=== PATIENT | female | born 1930 | race Caucasian/White ===

== ENCOUNTER 2017-01-06 11:28 | Inpatient (IN) | payer OTHER ==
[~2017-01-06] VITALS: Ht 154.9 cm; Wt 47.8 kg
[2017-01-06] VITALS (9 sets, daily range): BP systolic 98–149; BP diastolic 53–78
[~2017-01-06 11:28] MED LIST: ANUCORT-HC25 MG RC; ASPIRIN EC325 MG PO; ASPIRIN325 MG PO; AUGMENTIN500 MG PO; CEFTIN500 MG PO; CIPRO500 MG PO; CLARITIN-D 121 EACH PO; CRANBERRY TABL1 EACH PO; DEXILANT PO; DEXILANT60 MG PO; DIOVAN320 MG PO; ECOTRIN325 MG PO; K-DUR10 ME1 PO; KLOR-CON M1010 MEQ PO; LASIX10 MG PO; LASIX20 MG PO; LIPITOR10 MG PO; LIPITOR20 MG PO; MACROBID100 MG PO; MANDELAMINE500 MG PO; METOPROLOL SUCC25 MG PO; PEPCID40 MG PO; PLAVIX75 MG PO; PREDNISONE20 MG PO; PROTONIX40 MG PO; PYRIDIUM100 MG PO; SULFAMETHOXAZO1 EACH PO; TOPROL XL25 MG PO; TOPROL XL50 MG PO; VITAMIN D1000 INTUN PO; VITAMIN D31000 UNI2 PO; VITAMIN E400 UNIT PO; ZOFRAN4 MG PO; Zocor PO
[2017-01-06 12:44] LABS: HEMATOCRIT 29.7 % (36.0-46.0); MCV 83.9 FL (83-99); MEAN PLAT.VOLUME 11.9 uM^3 (9.5-12.4); PLATELET COUNT 138 K/uL (156-360); RBC DIS.WIDTH-CV 16.2 % (11.8-14.6); RBC DIS.WIDTH-SD 48.4 % (39-53); RED BLOOD COUNT 3.54 M/uL (3.80-5.20); WHITE BLOOD COUNT 5.5 K/uL (4.1-10.2)
[2017-01-06 12:52] LABS: INTER. NORMALIZED RATIO 1.1; PROTHROMBIN TIME 11.5 (9.2-11.2)
[2017-01-06 12:58] LABS: CHLORIDE 110 mEq/L (99-109); POTASSIUM 3.9 mEq/L (3.7-5.4); SODIUM 140 mEq/L (136-147)
[2017-01-06 12:59] LABS: MAGNESIUM 1.3 mg/dL (1.3-2.7)
[2017-01-06 13:01] LABS: GLUCOSE 118 mg/dL (70-99)
[2017-01-06 13:02] LABS: ANION GAP 6 MEQ/L (2-14)
[2017-01-06 13:03] LABS: TOTAL BILIRUBIN 0.3 mg/dL (0.0-1.0); TROP-I INTERPRETATION NEGATIVE; TROPONIN-I 0.16 ng/mL (0.0-0.30)
[2017-01-06 13:04] LABS: ALKALINE PHOSPHATASE 89 IU/L (3-129)
[2017-01-06 13:05] LABS: GFR ESTIMATE (CALCULATED) 56 mL/min/
[2017-01-06 13:06] LABS: UREA NITROGEN (BUN) 26 mg/dL (9-23)
[2017-01-06 19:54] LABS: HEMATOCRIT 29.6 % (36.0-46.0); MCV 84.1 FL (83-99)
[2017-01-06 20:19] LABS: TROP-I INTERPRETATION POSITIVE
[2017-01-06 20:46] LABS: TROPONIN-I 1.83 ng/mL (0.0-0.30)
[2017-01-07 04:40] LABS: HEMATOCRIT 30.9 % (36.0-46.0); MCV 83.7 FL (83-99)
[2017-01-07 04:48] VITALS: BP 126/61
[2017-01-07 04:56] LABS: CHLORIDE 106 mEq/L (99-109); POTASSIUM 3.3 mEq/L (3.7-5.4); SODIUM 139 mEq/L (136-147)
[2017-01-07 04:57] LABS: GLUCOSE 136 mg/dL (70-99)
[2017-01-07 04:59] LABS: ANION GAP 9 MEQ/L (2-14)
[2017-01-07 05:01] LABS: GFR ESTIMATE (CALCULATED) > 59 mL/min/
[2017-01-07 05:02] LABS: UREA NITROGEN (BUN) 16 mg/dL (9-23)
[2017-01-07 05:06] LABS: TROP-I INTERPRETATION POSITIVE
[2017-01-07 05:07] LABS: TROPONIN-I 1.44 ng/mL (0.0-0.30)
[2017-01-07 07:41] VITALS: BP 147/61
[2017-01-07 10:49] LABS: ANION GAP 9 MEQ/L (2-14); CHLORIDE 104 MEQ/L (99-109); GFR ESTIMATE (CALCULATED) > 59 mL/min/; GLUCOSE 200 mg/dL (70-99); POTASSIUM 3.7 MEQ/L (3.7-5.4); SAMPLE HEMOLYSIS CHECK 0; SAMPLE ICTERIC CHECK 0; SAMPLE LIPEMIA CHECK 0; SODIUM 138 MEQ/L (136-147); UREA NITROGEN (BUN) 14 mg/dL (9-23)
[2017-01-07 11:30] VITALS: BP 132/60
[2017-01-07 14:54] LABS: HEMATOCRIT 31.3 % (36.0-46.0); MCV 84.6 FL (83-99)
[2017-01-07 15:00] VITALS: BP 140/62
[2017-01-07 19:20] VITALS: BP 184/74
[2017-01-07 20:02] LABS: HEMATOCRIT 31.8 % (36.0-46.0); MCV 83.7 FL (83-99)
[2017-01-08] VITALS (10 sets, daily range): BP systolic 136–231; BP diastolic 67–105
[2017-01-08 05:08] LABS: HEMATOCRIT 31.1 % (36.0-46.0); MCV 82.9 FL (83-99)
[2017-01-08 10:36] LABS: ADD MIUA? YES; BILIRUBIN NEGATIVE; BLOOD SMALL; COLOR STRAW ((YELLOW)); GLUCOSE (STRIP) NEGATIVE; KETONES NEGATIVE; LEUKOCYTES TRACE; NITRITE NEGATIVE; PROTEIN (STRIP) NEGATIVE; SPECIFIC GRAVITY 1.005 (1.000-1.030); UROBILINOGEN 0.2 MG/DL (0.2-1.0)
[2017-01-08 10:58] LABS: BACTERIA NONE SEEN /HPF; EPITHELIAL CELLS RARE /HPF; MUCUS TRACE /LPF; RED BLOOD CELLS 30-40 /HPF (0-5); UCUL ADDED? NO; WHITE BLOOD CELLS 0-5 /HPF (0-5)
[2017-01-08 13:50] LABS: HEMATOCRIT 32.5 % (36.0-46.0); MCV 83.3 FL (83-99)
[2017-01-08 16:45] LABS: POINT-OF-CARE METER ID UU13113781
[2017-01-08 16:56] LABS: EOSINOPHIL (%) 0.8 % (0-5); EOSINOPHIL COUNT 0.1 K/uL (0-0.3); HEMATOCRIT 32.7 % (36.0-46.0); IMMATURE GRANULOCYTE (%) 0.3 % (0.0-0.7); LYMPHOCYTE COUNT 0.5 K/uL (1.0-2.8); MCH 26.3 PG (29.0-34.0); MCHC 32.1 G/DL (30.0-36.0); MEAN PLAT.VOLUME 11.5 uM^3 (9.5-12.4); MONOCYTE (%) 7.5 % (3-12); MONOCYTE COUNT 0.5 K/uL (0-0.8); NEUTROPHIL (%) 82.5 % (45-76); NEUTROPHIL COUNT 4.9 K/uL (1.8-6.4); PLATELET COUNT 179 K/uL (156-360); RBC DIS.WIDTH-SD 47.9 % (39-53); RED BLOOD COUNT 3.99 M/uL (3.80-5.20)
[2017-01-08 17:15] LABS: ANION GAP 9 MEQ/L (2-14); CHLORIDE 101 MEQ/L (99-109); POTASSIUM 3.8 MEQ/L (3.7-5.4); SAMPLE HEMOLYSIS CHECK 0; SAMPLE ICTERIC CHECK 0; SAMPLE LIPEMIA CHECK 0; SODIUM 137 MEQ/L (136-147)
[2017-01-08 17:22] LABS: GFR ESTIMATE (CALCULATED) > 59 mL/min/; GLUCOSE 117 mg/dL (70-99); UREA NITROGEN (BUN) 10 mg/dL (9-23)
[2017-01-08 19:43] LABS: HEMATOCRIT 35.1 % (36.0-46.0); MCV 82.8 FL (83-99)
[2017-01-09] VITALS (7 sets, daily range): BP systolic 122–190; BP diastolic 58–80
[2017-01-09 04:23] LABS: HEMATOCRIT 33.2 % (36.0-46.0)
[2017-01-09] MEDS ORDERED: APRESOLINE25 MG PO (10:41)
[2017-01-09] MEDS ORDERED: METOPROLOL SUCC50 MG PO (10:41)
[2017-01-09 12:19] LABS: HEMATOCRIT 33.4 % (36.0-46.0); MCV 80.5 FL (83-99)
[2017-01-09 19:58] LABS: HEMATOCRIT 32.7 % (36.0-46.0)
[2017-01-10 03:24] VITALS: BP 138/72
[2017-01-10 07:02] VITALS: BP 134/61
[2017-01-10 11:01] VITALS: BP 95/53
== END 2017-01-10 18:12 | DRG 281 ==
LOC: EME 11:28 → EDOF 13:47 → 4EAST 13:47
PROVIDERS: Emergency Medicine; Internal Medicine; Student in an Organized Health Care Education/Training Program
DX: I48.0 Paroxysmal atrial fibrillation (principal); I25.810 Atherosclerosis of coronary artery bypass graft(s) without angina pectoris; I21.4 Non-ST elevation (NSTEMI) myocardial infarction; E78.5 Hyperlipidemia, unspecified; I10 Essential (primary) hypertension; I50.9 Heart failure, unspecified; F17.210 Nicotine dependence, cigarettes, uncomplicated; R53.1 Weakness; Z86.73 Personal history of transient ischemic attack (TIA), and cerebral infarction without residual deficits; K64.8 Other hemorrhoids; Z95.2 Presence of prosthetic heart valve; I45.10 Unspecified right bundle-branch block; F41.9 Anxiety disorder, unspecified; G93.89 Other specified disorders of brain; Z96.643 Presence of artificial hip joint, bilateral; J44.9 Chronic obstructive pulmonary disease, unspecified
CPT/HCPCS: 70450; 71010; 80048; 80048 91; 80053; 81003; 82948; 83735; 84484; 85014; 85018; 85025; 85027; 85610; 87086; 87493; 87506; 93005; 93306; 94640 76; 97530 GO; 99281; 99285; C9113; J0360; J1160; J1940; J3475

== ENCOUNTER 2017-06-13 07:51 | Day surgery (SDC) | payer OTHER ==
[~2017-06-13] VITALS: Ht 154.9 cm; Wt 48.1 kg
[~2017-06-13 07:51] MED LIST changes: +APRESOLINE25 MG PO; +METOPROLOL SUCC50 MG PO; +PREVACID 24HR15 MG PO; +PROVENTIL HFA6.7 GM IH
[2017-06-13 08:29] VITALS: BP 124/57
[2017-06-13 12:29] VITALS: BP 151/86
[2017-06-13 13:13] VITALS: BP 136/62
== END 2017-06-13 13:21 | disposition home or self-care (01) ==
LOC: SDC 07:51
DX: N13.5 Crossing vessel and stricture of ureter without hydronephrosis (principal); N81.10 Cystocele, unspecified; Z87.440 Personal history of urinary (tract) infections; I25.10 Atherosclerotic heart disease of native coronary artery without angina pectoris; I10 Essential (primary) hypertension; E78.5 Hyperlipidemia, unspecified; M19.90 Unspecified osteoarthritis, unspecified site; Z87.891 Personal history of nicotine dependence; Z79.01 Long term (current) use of anticoagulants; Z82.49 Family history of ischemic heart disease and other diseases of the circulatory system; Z88.1 Allergy status to other antibiotic agents; Z88.2 Allergy status to sulfonamides
CPT/HCPCS: 74000; 76000; 87086; C1769; C2617; J1170; J1580; J7050

== ENCOUNTER 2017-07-27 14:49 | Observation (INO) | payer OTHER ==
[~2017-07-27] VITALS: Ht 154.9 cm; Wt 50.2 kg
[~2017-07-27 14:49] MED LIST changes: +HIPREX1 GM PO; +LASIX40 MG PO
[2017-07-27 15:35] LABS: MCH 25.1 PG (29.0-34.0); MCV 83.5 FL (83-99); MEAN PLAT.VOLUME 11.3 uM^3 (9.5-12.4); PLATELET COUNT 183 K/uL (156-360); RBC DIS.WIDTH-CV 16.4 % (11.8-14.6); RBC DIS.WIDTH-SD 49.6 % (39-53); RED BLOOD COUNT 4.19 M/uL (3.80-5.20); WHITE BLOOD COUNT 4.2 K/uL (4.1-10.2)
[2017-07-27 15:44] LABS: CHLORIDE 101 mEq/L (99-109); POTASSIUM 3.6 mEq/L (3.7-5.4); SODIUM 138 mEq/L (136-147)
[2017-07-27 15:45] LABS: GLUCOSE 100 mg/dL (70-99)
[2017-07-27 15:47] LABS: ANION GAP 10 MEQ/L (2-14)
[2017-07-27 15:49] LABS: GFR ESTIMATE (CALCULATED) 50 mL/min/
[2017-07-27 15:50] LABS: UREA NITROGEN (BUN) 25 mg/dL (9-23)
[2017-07-27 15:57] LABS: TROP-I INTERPRETATION NEGATIVE; TROPONIN-I < 0.01 ng/mL (0.0-0.30)
[2017-07-27 17:06] LABS: ADD MIUA? NO; BILIRUBIN NEGATIVE; BLOOD NEGATIVE; COLOR STRAW ((YELLOW)); GLUCOSE (STRIP) NEGATIVE; KETONES NEGATIVE; LEUKOCYTES NEGATIVE; NITRITE NEGATIVE; PROTEIN (STRIP) NEGATIVE; SPECIFIC GRAVITY 1.004 (1.000-1.030); UCUL ADDED? NO; UROBILINOGEN 0.2 MG/DL (0.2-1.0)
[2017-07-27 18:07] LABS: TROP-I INTERPRETATION NEGATIVE; TROPONIN-I < 0.01 ng/mL (0.0-0.30)
[2017-07-27 21:15] VITALS: BP 148/69
[2017-07-27 23:41] VITALS: BP 171/77
[2017-07-28 01:55] VITALS: BP 133/63; BP 137/64; BP 151/67
[2017-07-28 03:46] VITALS: BP 139/63
[2017-07-28 05:26] LABS: EOSINOPHIL (%) 3.2 % (0-5); EOSINOPHIL COUNT 0.1 K/uL (0-0.3); HEMATOCRIT 31.5 % (36.0-46.0); IMMATURE GRANULOCYTE (%) 0.3 % (0.0-0.7); INSTRUMENT ABS NEUTROPHIL CT 2.2 K/uL; LYMPHOCYTE COUNT 0.6 K/uL (1.0-2.8); MCH 26.2 PG (29.0-34.0); MCHC 30.8 G/DL (30.0-36.0); MCV 85.1 FL (83-99); MEAN PLAT.VOLUME 11.3 uM^3 (9.5-12.4); MONOCYTE (%) 13.7 % (3-12); MONOCYTE COUNT 0.5 K/uL (0-0.8); NEUTROPHIL COUNT 2.2 K/uL (1.8-6.4); PLATELET COUNT 166 K/uL (156-360); RBC DIS.WIDTH-CV 16.3 % (11.8-14.6); RBC DIS.WIDTH-SD 50.4 % (39-53); WHITE BLOOD COUNT 3.4 K/uL (4.1-10.2)
[2017-07-28 05:53] LABS: ALKALINE PHOSPHATASE 87 IU/L (3-129); ANION GAP 8 MEQ/L (2-14); CHLORIDE 105 MEQ/L (99-109); DIRECT BILIRUBIN 0.1 mg/dL (0.0-0.3); GFR ESTIMATE (CALCULATED) 50 mL/min/; GLUCOSE 92 mg/dL (70-99); POTASSIUM 3.9 MEQ/L (3.7-5.4); SAMPLE HEMOLYSIS CHECK 0; SAMPLE ICTERIC CHECK 0; SAMPLE LIPEMIA CHECK 0; SODIUM 141 MEQ/L (136-147); TOTAL BILIRUBIN 0.4 MG/DL (0.0-1.0); UREA NITROGEN (BUN) 21 mg/dL (9-23)
[2017-07-28 09:05] VITALS: BP 189/88
[2017-07-28 12:20] VITALS: BP 124/64
[2017-07-28] MEDS ORDERED: METOPROLOL SUCC50 MG PO (12:23)
[2017-07-28] MEDS ORDERED: SPIRONOLACTONE25 MG PO (12:23)
== END 2017-07-28 16:28 | disposition home or self-care (01) ==
LOC: EME 14:49 → EDOF 19:46 → ENRESERV 19:47 → 5WEST 20:59
PROVIDERS: Hospitalist; Physician Assistant Medical
DX: I16.0 Hypertensive urgency (principal); I10 Essential (primary) hypertension; R55 Syncope and collapse; Z86.73 Personal history of transient ischemic attack (TIA), and cerebral infarction without residual deficits; I48.0 Paroxysmal atrial fibrillation; I25.10 Atherosclerotic heart disease of native coronary artery without angina pectoris; Z95.1 Presence of aortocoronary bypass graft; I25.2 Old myocardial infarction; I35.0 Nonrheumatic aortic (valve) stenosis; Z95.2 Presence of prosthetic heart valve; E78.5 Hyperlipidemia, unspecified; D64.9 Anemia, unspecified; Z87.19 Personal history of other diseases of the digestive system; H91.90 Unspecified hearing loss, unspecified ear; F17.210 Nicotine dependence, cigarettes, uncomplicated; Z79.02 Long term (current) use of antithrombotics/antiplatelets; Z66 Do not resuscitate; Z91.09 Other allergy status, other than to drugs and biological substances; Z96.643 Presence of artificial hip joint, bilateral; Z90.49 Acquired absence of other specified parts of digestive tract; Z82.49 Family history of ischemic heart disease and other diseases of the circulatory system; Z80.3 Family history of malignant neoplasm of breast
CPT/HCPCS: 70450; 71010; 74174; 80048; 80076; 81003; 84484; 85025; 85027; 93005; 93880; 99281; 99285; G0378; J7030

== ENCOUNTER 2018-03-17 05:36 | Day surgery (SDC) | payer OTHER ==
[~2018-03-17] VITALS: Ht 152.4 cm; Wt 48.0 kg
[~2018-03-17 05:36] MED LIST changes: +ISOSORBIDE DINI30 MG PO; +SPIRONOLACTONE25 MG PO
[2018-03-17 06:34] VITALS: BP 121/57
[2018-03-17 09:35] VITALS: BP 125/58
[2018-03-17 10:55] VITALS: BP 133/58
== END 2018-03-17 11:00 | disposition home or self-care (01) ==
LOC: SDC 05:36
DX: N13.1 Hydronephrosis with ureteral stricture, not elsewhere classified (principal); N81.10 Cystocele, unspecified; Z87.440 Personal history of urinary (tract) infections; N30.20 Other chronic cystitis without hematuria; N30.80 Other cystitis without hematuria; N34.2 Other urethritis; K64.9 Unspecified hemorrhoids; R33.9 Retention of urine, unspecified; M16.0 Bilateral primary osteoarthritis of hip; I25.10 Atherosclerotic heart disease of native coronary artery without angina pectoris; Z82.49 Family history of ischemic heart disease and other diseases of the circulatory system; Z88.1 Allergy status to other antibiotic agents; Z88.2 Allergy status to sulfonamides
CPT/HCPCS: 87086; C1769; C2617; J0131; J0330; J1580; J3010

== ENCOUNTER 2018-04-08 08:45 | Emergency (ER) | payer OTHER ==
[~2018-04-08] VITALS: Ht 154.9 cm; Wt 48.9 kg
[2018-04-08 09:40] LABS: BASOPHIL (%) 0.7 % (0-1); EOSINOPHIL (%) 2.1 % (0-5); EOSINOPHIL COUNT 0.1 K/uL (0-0.3); HEMATOCRIT 33.2 % (36.0-46.0); HEMOGLOBIN 10.6 G/DL (11.9-15.5); IMMATURE GRANULOCYTE (%) 0.2 % (0.0-0.7); LYMPHOCYTE COUNT 0.6 K/uL (1.0-2.8); MCH 27.6 PG (29.0-34.0); MCHC 31.9 G/DL (30.0-36.0); MCV 86.5 FL (83-99); MONOCYTE (%) 10.1 % (3-12); MONOCYTE COUNT 0.4 K/uL (0-0.8); NEUTROPHIL (%) 73.9 % (45-76); NEUTROPHIL COUNT 3.1 K/uL (1.8-6.4); PLATELET COUNT 142 K/uL (156-360); RBC DIS.WIDTH-CV 15.2 % (11.8-14.6); RBC DIS.WIDTH-SD 48.2 % (39-53); RED BLOOD COUNT 3.84 M/uL (3.80-5.20); WHITE BLOOD COUNT 4.2 K/uL (4.1-10.2)
[2018-04-08 09:47] LABS: INTER. NORMALIZED RATIO 1.1
[2018-04-08 09:50] LABS: CHLORIDE 104 mEq/L (99-109); POTASSIUM 3.9 mEq/L (3.7-5.4); PTT 26.5 SEC (25-37); SODIUM 139 mEq/L (136-147)
[2018-04-08 09:51] LABS: GLUCOSE 115 mg/dL (70-99)
[2018-04-08 09:55] LABS: CREATININE 1.1 mg/dL (0.6-1.3); GFR ESTIMATE (CALCULATED) 50 mL/min/
[2018-04-08 09:56] LABS: UREA NITROGEN (BUN) 27 mg/dL (9-23)
[2018-04-08 10:01] LABS: TROP-I INTERPRETATION NEGATIVE; TROPONIN-I < 0.01 ng/mL (0.0-0.30)
[2018-04-08 11:04] LABS: APPEARANCE SL.HAZY ((CLEAR)); BILIRUBIN NEGATIVE; BLOOD LARGE; COLOR YELLOW ((YELLOW)); GLUCOSE (STRIP) NEGATIVE; KETONES NEGATIVE; LEUKOCYTES LARGE; NITRITE NEGATIVE; PROTEIN (STRIP) 30; SPECIFIC GRAVITY 1.014 (1.000-1.030); UROBILINOGEN 0.2 MG/DL (0.2-1.0)
[2018-04-08 11:18] LABS: BACTERIA RARE /HPF; EPITHELIAL CELLS RARE /HPF; HYALINE CASTS 0-5 /LPF; MUCUS NONE SEEN /LPF; RED BLOOD CELLS TNTC /HPF (0-5); UCUL ADDED? YES; WHITE BLOOD CELLS 30-40 /HPF (0-5)
[2018-04-08 12:22] VITALS: BP 149/56
== END 2018-04-08 12:25 | disposition home or self-care (01) ==
LOC: EME 08:45
PROVIDERS: Emergency Medicine
DX: N39.0 Urinary tract infection, site not specified (principal); J44.9 Chronic obstructive pulmonary disease, unspecified; I45.10 Unspecified right bundle-branch block; R91.8 Other nonspecific abnormal finding of lung field; N26.1 Atrophy of kidney (terminal); N13.30 Unspecified hydronephrosis; K43.9 Ventral hernia without obstruction or gangrene; K44.9 Diaphragmatic hernia without obstruction or gangrene; I11.0 Hypertensive heart disease with heart failure; I50.9 Heart failure, unspecified; K21.9 Gastro-esophageal reflux disease without esophagitis; E78.5 Hyperlipidemia, unspecified; I25.2 Old myocardial infarction; F41.9 Anxiety disorder, unspecified; Z79.02 Long term (current) use of antithrombotics/antiplatelets; Z79.82 Long term (current) use of aspirin; Z87.891 Personal history of nicotine dependence; Z96.0 Presence of urogenital implants; Z95.2 Presence of prosthetic heart valve; Z95.1 Presence of aortocoronary bypass graft; Z96.643 Presence of artificial hip joint, bilateral; Z87.19 Personal history of other diseases of the digestive system; Z87.440 Personal history of urinary (tract) infections; Z87.442 Personal history of urinary calculi; Z90.49 Acquired absence of other specified parts of digestive tract; Z85.51 Personal history of malignant neoplasm of bladder; Z85.528 Personal history of other malignant neoplasm of kidney; Z91.048 Other nonmedicinal substance allergy status; Z88.2 Allergy status to sulfonamides; Z88.1 Allergy status to other antibiotic agents; Z88.8 Allergy status to other drugs, medicaments and biological substances
CPT/HCPCS: 71045; 74176; 80048; 81003; 83880; 84484; 85025; 85610; 85730; 87086; 93005; 99281; 99285; J0696